=== PATIENT | female | born 1985 | race Caucasian/White ===

== ENCOUNTER 2019-08-06 14:30 | Emergency (ER) | payer OTHER ==
--- NOTE | 2019-08-06 14:48 | ED Physician Documentation ---
PD HPI ABD PAIN - Stated complaint Stated Complaint: FEMALE , 5 WEEKS PREG - Chief complaint Chief Complaint: Abd Pain - History obtained from History obtained from: Patient - History of Present Illness Timing - onset: Today (This is a [id number]-old woman who is . I saw her a few days ago for related cramps. Ultrasound at that point showed a potential gestational sac and her beta-hCG was in the 500s. She little bit of bleeding on that day but was doing okay until today when she had a large gush of blood and is now spotting. 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 - Present Medications Home Medications: Ambulatory Orders Medication Instructions Recorded Confirmed Pnv No.121/Iron/Folic Acid 1 each PO DAILY 08/02/19 08/02/19 [ Multivitamin Tablet] - Allergies Allergies/Adverse Reactions: Allergies Allergy/AdvReac Type Severity Reaction Status Date / Time No Known Drug Allergies Allergy Verified 08/02/19 11:49 - Social History Does the pt smoke?: No Smoking Status: Never smoker Does the pt drink ETOH?: No Does the pt have substance abuse?: No - Immunizations Immunizations are current?: Yes PD ED PE NORMAL - Vitals Vital signs reviewed: Yes - General General: Alert and oriented X 3, No acute distress - Abdomen Abdomen: Soft, Non tender - Derm Derm: Normal color, Warm and dry, No rash - Neuro Neuro: Alert and oriented X 3, Normal speech Results - Vitals Vitals: Vital Signs - 24 hr 08/06/19 08/06/19 14:34 16:18 Temperature 36.4 C L Heart Rate 78 80 Respiratory 16 16 Rate Blood Pressure 106/70 107/74 O2 Saturation 98 100 Oxygen O2 Source Room air - Labs Labs: Laboratory Tests 08/06/19 08/06/19 15:08 15:08 Hgb 11.4 L Hct 34.5 L HCG, Quant 272.36 - Rads (name of study) Pelvic sono Radiology: EMP read contemporaneously ( of unknown location, intrauterine fruit fluid collection, pelvic free fluid) PD MEDICAL DECISION MAKING - ED course ED course: This is a 33-year-old woman who seems to have a miscarriage in process, her beta-hCG is dropping significantly and her ultrasound does not seem to be progressing. Given the pelvic free fluid and persistent minor concern for ectopic case was discussed by phone with Kip Isaac who agreed with the current plan of serial betas to 0 and repeat ultrasound in a week, and return to ED precautions for severe pain or bleeding or syncope. Departure - Departure Disposition: 01 Home, Self Care Clinical Impression: Incomplete miscarriage Condition: Good Record reviewed to determine appropriate education?: Yes Instructions: ED Miscarriage Incom Comments: As discussed, your beta-hCG has dropped from 563 to 272 and your ultrasound has not progressed with a little bit of pelvic free fluid. This is most consistent with an incomplete miscarriage, ectopic is not impossible but pretty unlikely given the current data. Return if you develop severe pain, heavy bleeding, dizziness or passing out. Otherwise you need [place] probably the want to follow it until it is near 0 and a repeat ultrasound in a week. Next lab draw in 2 days.
[2019-08-06 15:29] LABS: HGB - HEMOGLOBIN 11.4 g/dL (12.0-16.0)
[2019-08-06 16:19] VITALS: BP 107/74
--- NOTE | 2019-08-06 16:24 | Ultrasound Report ---
Reason: VB / preg Procedure Date: 08/06/2019 Accession Number: [id number] / [id number] Procedure: US - OB First Trimester CPT Code: Final Report FULL RESULT: EXAM: FIRST TRIMESTER OBSTETRIC ULTRASOUND (Less than 11 weeks) EXAM DATE: 08/06/2019 03:21 PM. CLINICAL HISTORY: Vaginal bleeding. . LMP: Unknown. COMPARISONS: OB FIRST TRIMESTER 08/02/2019 12:17 PM. TECHNIQUE: Transabdominal ultrasound examination with static image documentation. Transvaginal examination was not performed as the patient was not amenable to this. CLINICAL DATES: EGA 6 weeks 1 day with RAGINI 03/30/2020 based on LMP. ASSESSMENT: Candidate gestational Sac: Single intrauterine. Mean gestational sac diameter: 4 mm = 5 weeks 1 day. Please note that the morphology is triangular and in the fundus somewhat favoring free fluid or a collapsed gestational sac. Embryo: Not seen. Cardiac activity: Not seen. Yolk sac: Not seen. A small amount of free fluid is seen in the fundal endometrium. MATERNAL STRUCTURES: Uterus: Anteverted. Unremarkable. Cervix: Closed. Right Ovary/Adnexa: The ovary measures 2.4 x 2.1 x 2.0 cm, volume 5.6 cc. 1.3 cm cyst is noted. Left Ovary/Adnexa: The ovary measures 3.1 x 2.4 x 3.0 cm, volume 11.7 cc. Unremarkable. Free Fluid: Small quantity, greater than expected for physiologic. Other: None. IMPRESSION: 1. of unknown location. Intrauterine fluid collection, which could represent a gestational sac, cyst, or focal fluid. If this is a gestational sac, size would correspond to a gestational age of 5 weeks and 1 day. Recommend close clinical follow-up and correlation with serial beta hCG, and follow-up ultrasound if indicated. 2. Free pelvic fluid, small quantity but greater than expected for physiologic. RADIA
== END 2019-08-06 17:16 | disposition home or self-care (01) ==
LOC: ED 14:30
DX: O03.4 Incomplete spontaneous abortion without complication (principal)
CPT/HCPCS: 36415; 76801; 84702; 85014; 85018; 99283; 99284

== ENCOUNTER 2019-12-16 18:32 | Emergency (ER) | payer OTHER ==
[2019-12-16 18:59] LABS: BASOPHILS % (AUTO) 0.4 %; EOSINOPHILS # (AUTO) 0.2 10^3/uL (0.0-0.7); EOSINOPHILS % (AUTO) 1.7 %; HGB - HEMOGLOBIN 11.4 g/dL (12.0-16.0); LYMPHOCYTES % (AUTO) 28.8 %; MEAN CORPUSCULAR HEMOGLOBIN 29.8 pg (27.0-31.0); MEAN CORPUSCULAR HGB CONC 33.5 g/dL (32.0-36.0); MEAN PLATELET VOLUME 10.9 fL (7.9-10.8); MONOCYTES # (AUTO) 0.9 10^3/uL (0.0-1.0); MONOCYTES % (AUTO) 8.3 %; NEUTROPHILS # (AUTO) 6.4 10^3/uL (1.5-6.6); NEUTROPHILS % (AUTO) 60.4 %; PLT - PLATELET COUNT 205 10^3/uL (130-450); RED BLOOD COUNT 3.82 10^6/uL (4.20-5.40); RED CELL DISTRIBUTION WIDTH 13.7 % (12.0-15.0); WHITE BLOOD COUNT 10.6 x10^3/uL (4.8-10.8)
--- NOTE | 2019-12-16 19:00 | ED Physician Documentation ---
History of Present Illness - Stated complaint Stated Complaint: FEMALE /BLEEDING - Chief complaint Chief Complaint: Abd Pain - History of Present Illness Timing: Prior to arrival, How many hours ago (1) - Additonal information Additional information: 34-year-old female presents to the emergency department with chief complaint of acute onset vaginal bleeding. Patient reports she is approximately 13 weeks . LMP September 12, 2019 A1. Pt reports soaking a menstrual pad. Denbeis peliv pain, endorses cramping. no dysuria. No fevers. Denies Cp, dyspnea Patient reports that she had an ultrasound at approximately 10 Weeks [place] [facility] that confirmed an IUP. Patient was seen in this emergency department in mid July and she was noted at that time to have a spontaneous miscarriage. She was told by her OB that she could try again for after her next menstrual cycle which was in August. Review of Systems Constitutional: denies: Fever, Chills Eyes: denies: Loss of vision Cardiac: denies: Chest pain / pressure, Palpitations Respiratory: denies: Dyspnea GI: denies: Abdominal Pain, Abdominal Swelling, Nausea, Vomiting : reports: Vaginal bleeding. denies: Dysuria Skin: denies: Rash, Lesions Musculoskeletal: denies: Neck pain, Back pain Neurologic: denies: Generalized weakness, Syncope, Headache PD PAST MEDICAL HISTORY - Past Medical History Neuro: Migraines - Past Surgical History Past Surgical History: Yes /[employer]: section - Present Medications Home Medications: Ambulatory Orders Medication Instructions Recorded Confirmed Pnv No.121/Iron/Folic Acid 1 each PO DAILY 08/02/19 08/02/19 [ Multivitamin Tablet] - Allergies Allergies/Adverse Reactions: Allergies Allergy/AdvReac Type Severity Reaction Status Date / Time No Known Drug Allergies Allergy Verified 08/02/19 11:49 - Social History Does the pt smoke?: No Smoking Status: Never smoker Does the pt drink ETOH?: No Does the pt have substance abuse?: No - Immunizations Immunizations are current?: Yes - POLST Patient has POLST: No PD ED PE EXPANDED - General General: Alert, No acute distress, Well developed/nourished - Cardiac Cardiac: Regular Rate, Radial strong equal, Pedal strong equal - Respiratory Respiratory: Clear to ausultation mayur. No: Distress, Labored - Abdomen Abdomen: Normal Bowel sounds - Female Female : Normal external, Other (Cervix is closed. Small amount of blood in vaginal vault. No adnexal tenderness.) - Back Back: Normal exam, Normal ROM. No: Vertebral tenderness, Soft tissue tenderness - Extremities Extremities: Normal - Neuro Neuro: Alert and Oriented X 3. No: Confused, Disoriented - GCS Eye Opening: Spontaneous Motor: Obeys Commands Verbal: Oriented Total: 15 Results - Vitals Vitals: Vital Signs - 24 hr 12/16/19 12/16/19 18:36 18:57 Temperature 36.8 C Heart Rate 86 112 H Respiratory 16 16 Rate Blood Pressure 117/70 124/85 H O2 Saturation 96 100 Oxygen O2 Source Room air - Labs Labs: Laboratory Tests 12/16/19 12/16/19 12/16/19 18:50 18:50 18:50 WBC 10.6 RBC 3.82 L Hgb 11.4 L Hct 34.0 L MCV 89.0 MCH 29.8 MCHC 33.5 RDW 13.7 Plt Count 205 MPV 10.9 H Neut # (Auto) 6.4 Lymph # (Auto) 3.0 [place] # (Auto) 0.9 Eos # (Auto) 0.2 Baso # (Auto) 0.0 Absolute Nucleated RBC 0.00 Nucleated RBC % 0.0 Sodium 135 Potassium 3.6 Chloride 102 Carbon Dioxide 24 Anion Gap 9.0 BUN 11 Creatinine 0.7 Estimated GFR (MDRD) 95 Glucose 98 Calcium 8.7 Total Bilirubin 0.5 AST 18 ALT 11 Alkaline Phosphatase 48 Total Protein 6.4 L Albumin 3.7 Globulin 2.7 Albumin/Globulin Ratio 1.4 Lipase 35 HCG, Quant 598885.00 Urine Color Urine Clarity Urine pH Ur Specific Bertrand Urine Protein Urine Glucose (UA) Urine Ketones Urine Occult Blood Urine Nitrite Urine Bilirubin Urine Urobilinogen Ur Leukocyte Esterase Ur Microscopic Review Urine Culture Comments Blood Type 12/16/19 12/16/19 18:50 19:34 WBC RBC Hgb Hct MCV MCH MCHC RDW Plt Count MPV Neut # (Auto) Lymph # (Auto) [place] # (Auto) Eos # (Auto) Baso # (Auto) Absolute Nucleated RBC Nucleated RBC % Sodium Potassium Chloride Carbon Dioxide Anion Gap BUN Creatinine Estimated GFR (MDRD) Glucose Calcium Total Bilirubin AST ALT Alkaline Phosphatase Total Protein Albumin Globulin Albumin/Globulin Ratio Lipase HCG, Quant Urine Color YELLOW Urine Clarity CLEAR Urine pH 6.5 Ur Specific [place] <=1.005 Urine Protein NEGATIVE Urine Glucose (UA) NEGATIVE Urine Ketones NEGATIVE Urine Occult Blood TRACE-INTA Urine Nitrite NEGATIVE Urine Bilirubin NEGATIVE Urine Urobilinogen 0.2 (NORMAL) Ur Leukocyte Esterase NEGATIVE Ur Microscopic Review NOT INDICATED Urine Culture Comments NOT INDICATED Blood Type O POSITIVE - Rads (name of study) pelvic US Radiology: Final report received (Single live IUP at 13 weeks 2 days. heart rate 158 bpm. A small to moderate sized inga-gestational hemorrhage. Mild hydronephrosis of maternal right kidney.) PD MEDICAL DECISION MAKING - ED course Complexity details: reviewed old records, reviewed results, re-evaluated patient, considered differential, d/w patient ED course: 34-year-old female who is approximately 13 weeks comes to the emergency department with acute onset vaginal bleeding. She has noted of had a spontaneous miscarriage here in mid July. - Patient is Rh+Findings were discussed with patient in detail. She will follow-up with Dr. Murcia the base physician in 48 hours. At that time repeat hormones will be completed as well as consideration of repeat imaging. Patient reports that during her time in the emergency department the vaginal bleeding has decreased. We discussed emergent return precautions for severe vaginal bleeding -Patient has a very healthy quant greater than 100,000. Her urine is not consistent with infection. - Ultrasound reveals a live IUP. However there are findings consistent with a subchorionic hemorrhage. No findings to suggest an ectopic . This is also the second ultrasound patient has had but confirms IUP - There are findings of mild right hydronephrosis. Patient has no flank pain or findings of urinary obstruction. She is advised to follow this closely with her primary care doctor Departure - Departure Clinical Impression: Threatened miscarriage in early , Hydronephrosis of right kidney Subchorionic hemorrhage Qualifiers: Fetus number: single or unspecified fetus Trimester: second trimester Qualified Code(s): O41.8X20 - Other specified disorders of amniotic fluid and membranes, second trimester, not applicable or unspecified Condition: Stable Instructions: ED Miscarriage Poss Comments: Vicenta the ultrasound shows that your baby is approximately 14 weeks and it does have a healthy heart rate. However as we discussed it does indicate that you have a subchorionic hemorrhage. This is where the placenta begins to fall away from the uterus. Your hormone level for today was 104,000. You do need to see the base physician Dr. Murcia in 48 hours. At that time your hormone levels should be repeated. In addition please monitor your vaginal bleeding. She may consider repeating the ultrasound at the time of your next visit. If you develop severe vaginal bleeding (saturating a pad or tampon more than 1 an hour for 4 to 6 hours), have a racing heart rate, feel feverish or faint then please return to the emergency department The ultrasound does show that there is mild swelling of the right kidney. However the urine shows no signs of obstruction. Your kidney function today is normal this is something that I would like you to discuss very closely with your primary care doctor. This is not likely to affect your .
[2019-12-16 19:10] LABS: ALBUMIN 3.7 g/dL (3.2-5.5); ALBUMIN/GLOBULIN RATIO 1.4 (1.0-2.2); BILIRUBIN,TOTAL 0.5 mg/dL (0.2-1.0); CALCIUM 8.7 mg/dL (8.5-10.3); CREATININE 0.7 mg/dL (0.4-1.0); TOTAL PROTEIN 6.4 g/dL (6.7-8.2)
[2019-12-16 19:45] LABS: BILIRUBIN,URINE NEGATIVE (NEGATIVE); GLUCOSE, URINE (UA) NEGATIVE (NEGATIVE); KETONES,URINE (UA) NEGATIVE (NEGATIVE); LEUKOCYTE ESTERASE, URINE NEGATIVE (NEGATIVE); NITRITE,URINE NEGATIVE (NEGATIVE); OCCULT BLOOD,URINE TRACE-INTA (NEGATIVE); PH,URINE 6.5 PH (5.0-7.5); PROTEIN,URINE NEGATIVE (NEGATIVE); UROBILINOGEN,URINE 0.2 (NORMAL) E.U./dL (NORMAL)
[2019-12-16 19:46] LABS: CLARITY,URINE CLEAR (CLEAR)
--- NOTE | 2019-12-16 20:28 | Ultrasound Report ---
PROCEDURE: OB First Trimester INDICATIONS: EGA 12-13 weeks, vag bleed OUTSIDE/PRIOR DATING DATA: Last menstrual period (LMP): 09/12/2019. LMP-based estimated date of delivery (RAGINI): 06/18/2020. First dating scan (date and location): 12/16/2019 Estimated date of delivery (RAGINI) from first dating scan: 06/20/2020. TECHNIQUE: Real-time scanning was performed of the fetus and maternal pelvic organs, with image documentation. COMPARISON: OB ultrasound 08/06/2019. FINDINGS: Embryo: Krishna living intrauterine . [place]-rump length measuring 7.1 cm corresponding to gestational age of 13 weeks 2 days. heart rate 158 bpm. Posterior placenta.. Gestational hemor rhage measuring 6.6 x 6.1 x 2.4 cm. Measurement variability in dating: +/- 4 weeks by LMP, +/- 7 days by mean sac diameter (use before 6 weeks gestation if crown-rump length not able to be measured), +/- 5 days by crown-rump length (6-12 weeks gestation). Maternal organs: Right ovary is within normal limits. Left ovary not identified. There is hydronephro sis of the right maternal kidney. Left kidney demonstrates a cyst measuring simple 2 cm. Maternal ce rvix is closed. IMPRESSION: 1. Krishna living intrauterine at 13 weeks 2 days based on today's ultrasound crown-rump length. heart rate 158 bpm. 2. Small to moderate-sized perigestational hemorrhage. 3. Mild hydronephrosis of the maternal right kidney. -Recommend correlation with renal function and follow-up ultrasound surveillance. Limited results were conveyed to Skylar Leggett at 7:30 PM. By the stuntman. Reviewed by: Evan Moody MD on 12/16/2019 8:26 PM PDT Approved by: Evan Moody MD on 12/16/2019 8:26 PM PDT Station ID: [id number]
[2019-12-16 21:01] VITALS: BP 105/73
== END 2019-12-16 21:10 | disposition home or self-care (01) ==
LOC: ED 18:32
DX: O20.0 Threatened abortion (principal); O41.8X20 Other specified disorders of amniotic fluid and membranes, second trimester, not applicable or unspecified; O99.89 Other specified diseases and conditions complicating pregnancy, childbirth and the puerperium; N13.30 Unspecified hydronephrosis; O09.292 Supervision of pregnancy with other poor reproductive or obstetric history, second trimester; O09.522 Supervision of elderly multigravida, second trimester; Z3A.14 14 weeks gestation of pregnancy
CPT/HCPCS: 36415; 76801; 80053; 81001; 81003; 83690; 84702; 85025; 86900; 86901; 87086; 99284

== ENCOUNTER 2020-03-22 07:39 | Outpatient (CLI) | payer OTHER ==
[2020-03-22 08:56] LABS: HGB - HEMOGLOBIN 10.7 g/dL (12.0-16.0); MEAN CORPUSCULAR HGB CONC 32.9 g/dL (32.0-36.0); MEAN PLATELET VOLUME 10.9 fL (7.9-10.8); RED BLOOD COUNT 3.57 10^6/uL (4.20-5.40); RED CELL DISTRIBUTION WIDTH 13.5 % (12.0-15.0); WHITE BLOOD COUNT 8.7 x10^3/uL (4.8-10.8)
== END 2020-03-22 07:40 | disposition home or self-care (01) ==
LOC: LAB 07:39
PROVIDERS: ATTEND Nurse Practitioner Obstetrics & Gynecology
DX: Z36.89 Encounter for other specified antenatal screening (principal)
CPT/HCPCS: 36415; 82950; 85027

== ENCOUNTER 2020-04-25 08:00 | Outpatient (CLI) | payer OTHER | END 2020-04-25 23:59 | disposition home or self-care (01) | LOC: LAB.R 08:00 | PROVIDERS: ATTEND Obstetrics & Gynecology | DX: Z34.90 Encounter for supervision of normal pregnancy, unspecified, unspecified trimester (principal) | CPT/HCPCS: 82731 ==